=== PATIENT | female | born 1960 | race Caucasian/White ===

== ENCOUNTER → 2017-04-09 | Outpatient (CLI) | payer BC ==
--- NOTE | 2017-04-11 08:41 | MM ---
Reason for exam: screening (asymptomatic). Last mammogram was performed 1 year ago. History: Patient is postmenopausal. Reductions of both breasts, 1990. Took estrogen for 5 years beginning at age 45. Took progesterone for 5 years beginning at age 45. Physical Findings: A clinical breast exam by your physician is recommended on an annual basis and results should be correlated with mammographic findings. MG 3D Screening Mammo W/Cad Bilateral CC and MLO view(s) were taken. Prior study comparison: April 06, 2016, bilateral MG 3d screening mammo w/cad. March 31, 2015, bilateral MG screening mammo w CAD. January 20, 2014, bilateral MG screening mammo w CAD. There are scattered fibroglandular densities. Finding: There are indeterminate grouped calcifications in the upper outer quadrant, middle position of the right breast. New finding since April 06, 2016, March 31, 2015, and January 20, 2014. ASSESSMENT: Incomplete: need additional imaging evaluation, BI-RAD 0 RECOMMENDATION: Special view mammogram of the right breast. If lesion persists on supplemental views, image directed ultrasound is recommended. [facility] will attempt to contact patient to return for supplemental views and ultrasound if indicated.
== END | disposition home or self-care (01) ==
LOC: RADMAMWWP 09:58
PROVIDERS: ATTEND Obstetrics & Gynecology
DX: Z12.31 Encounter for screening mammogram for malignant neoplasm of breast (principal)
CPT/HCPCS: 77063; G0202

== ENCOUNTER → 2017-04-12 | Outpatient (CLI) | payer BC ==
--- NOTE | 2017-04-13 06:54 | MM ---
Reason for exam: additional evaluation requested from abnormal screening. Last mammogram was performed less than 1 month ago. History: Patient is postmenopausal. Reductions of both breasts, 1989. Took estrogen for 5 years beginning at age 45. Took progesterone for 5 years beginning at age 45. Physical Findings: Nurse did not find any significant physical abnormalities on exam. MG 3D Work Up W/Cad RT LM, CC with magnification, and LM with magnification view(s) were taken of the right breast. Prior study comparison: April 09, 2017, bilateral MG 3d screening mammo w/cad. April 06, 2016, bilateral MG 3d screening mammo w/cad. Finding: There are suspicious heterogeneous calcifications in the slight outer quadrant, posterior middle position of the right breast. These results were verbally communicated with the patient and result sheet given to the patient on 04/12/17. ASSESSMENT: Suspicious, BI-RAD 4 RECOMMENDATION: Stereotactic core biopsy of the right breast. Called Dr. Hernandez with mammographic findings and has scheduled an appointment for the patient for 05/09/17 at 3:[address] Bowie. Biopsy scheduled for 04/20/17 at 8:00. PRELIMINARY REPORT CALLED AND FAXED TO DR. BOWIE ON 04/13/17.
== END ==
LOC: RADMAMWWP 14:12
PROVIDERS: ATTEND Obstetrics & Gynecology
DX: R92.8 Other abnormal and inconclusive findings on diagnostic imaging of breast (principal)
CPT/HCPCS: G0206; G0279

== ENCOUNTER → 2017-04-20 | Day surgery (SDC) | payer BC ==
[2017-04-20 07:17] VITALS: RESP 16; BMI 30.7
[2017-04-20 09:23] VITALS: BP 127/85; PULSE 66; TEMP 97.5
--- NOTE | 2017-04-20 18:45 | MM ---
EXAMINATION TYPE: MG stereo VAD BX RT DATE OF EXAM: 04/20/2017 COMPARISON: NONE CLINICAL HISTORY: Abnormal mammogram breast calcifications TECHNIQUE: Stereotactic guided core biopsy of right breast. FINDINGS: The procedure of stereotactic guided core biopsy was explained to the patient. Benefits, alternatives, and risks were discussed. An informed consent was then obtained. Timeout was performed. [facility] Shortness pathway was lateral approach. Radiology localized then Dr. Liz performed the procedure. A vacuum assisted biopsy device was used to obtain 6 core samples. The patient tolerated the procedure well without any immediate complication. The patient was kept in the radiology department for short stay after the procedure and then discharged home in stable condition. Specimen: Targeted calcifications are identified in specimen mammogram. Post biopsy mammogram: Mammogram ordered by the physician shows the clip to appear in satisfactory position relative to the targeted area of concern on the preprocedure images. IMPRESSION: 1. Successful core biopsy right breast calcifications. Recommendations: 1. Recommendations are pending pathology results. Pathology Results: Malignant BREAST, RIGHT, STEREOTACTIC CORE BIOPSY: DUCT CARCINOMA IN SITU, PENDING SPECIAL STAINS TO FURTHER EVALUATE FOR INVASION. THE RESULTS WILL BE ISSUED IN AN ADDENDUM REPORT. 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 CALCIFICATIONS IDENTIFIED. Recommendation Surgical consult of the right breast. ALFREDA
== END ==
LOC: RADMAMWWP 06:49
PROVIDERS: ATTEND Surgery
DX: D05.11 Intraductal carcinoma in situ of right breast (principal)
CPT/HCPCS: 88305; 88342; 88341; 19081; A4648; J2001

== ENCOUNTER → 2017-10-17 | Outpatient (CLI) | payer BC ==
--- NOTE | 2017-10-17 10:56 | MM ---
Reason for exam: follow-up at short interval from prior study. Last mammogram was performed 6 months ago. History: Patient is postmenopausal and has history of breast cancer at age 57. Radiation therapy of the right breast, July 2017. Malignant MG pre op needle loc RT of the right breast, June 01, 2017. Lumpectomy of the right breast, June 01, 2017. Malignant MG stereo VAD BX RT of the right breast, April 20, 2017. Reductions of both breasts, 1989. Took estrogen for 5 years beginning at age 45. Took progesterone for 5 years beginning at age 45. Taking antineoplastic beginning at age 57. Physical Findings: Nurse did not find any significant physical abnormalities on exam. MG 3D Diag Mammo W/Cad RT CC and MLO view(s) were taken of the right breast. Prior study comparison: April 12, 2017, right breast MG 3d work up w/cad RT. April 09, 2017, bilateral MG 3d screening mammo w/cad. The breast tissue is heterogeneously dense. This may lower the sensitivity of mammography. Post therapy change on the right, 4.2 x 4.7cm in craniocaudal by anterior posterior dimension. These results were verbally communicated with the patient and result sheet given to the patient on 10/17/17. ASSESSMENT: Benign, BI-RAD 2 RECOMMENDATION: Follow-up diagnostic mammogram of both breasts in 6 months. Back on schedule.
== END | disposition home or self-care (01) ==
LOC: RADMAMWWP 09:47
PROVIDERS: ATTEND Radiology Radiation Oncology
DX: Z08 Encounter for follow-up examination after completed treatment for malignant neoplasm (principal); Z85.3 Personal history of malignant neoplasm of breast
CPT/HCPCS: 77065; G0279

== ENCOUNTER → 2018-01-14 | Outpatient (CLI) | payer BC ==
--- NOTE | 2018-01-14 15:35 | BD ---
EXAMINATION TYPE: Axial Bone Density DATE OF EXAM: 01/14/2018 CLINICAL HISTORY: 57-year-old female history of breast cancer, osteopenia, postmenopausal screening Height: 61.5 Weight: 170 FRAX RISK QUESTIONS: Alcohol (3 or more units per day): no Family History (Parent hip fracture): mother broke pelvis last year Glucocorticoids (More than 3mos): just got off second round of steroids for foot problem( all for ab out month) (Ex: prednisone, prednisolone, methylprednisolone, dexamethasone, and hydrocortisone). History of Fracture in Adulthood: ankle Secondary Osteoporosis: 1. Type 1 Diabetes: no 2. Hyperthyroidism: unsure 3. Menopause before 45: hysterectomy age 44 4. Malnutrition: no 5. Chronic liver disease: no Rheumatoid Arthritis: no Current Tobacco Use: no RISK FACTORS HISTORY OF: Family History of Osteoporosis: yes Active: yes Diet low in dairy products/other sources of calcium: no Postmenopausal woman: yes Take estrogen and/or progesterone medications: not now How long: estrogen about 5 years starting about age 45 Lost more than 2 inches in height since high school: no Frequent falls: no Poor Health: no Hyperparathyroidism: no Adrenal Insufficiency: no MEDICATIONS: Prednisone or other steroids: not now How Long: about a month Thyroid Medications: yes Which medication: Synthroid How Long: over 10 years Osteoporosis Medications: yes Which medication: not now How Long: about 5 years used Altevia Additional Medications: antineoplastic Additional History: breast CA / radiation EXAM MEASUREMENTS: Bone mineral densitometry was performed using the [employer] System. Bone mineral density as measured about the Lumbar spine is: ----- L1-L4(G/cm2): 1.154 T Score Values are as follows: ----- L2: -0.8 ----- L3: -0.4 ----- L4: 0.4 ----- L1-L4: -0.2 Bone mineral density has: Decreased -2.4% since study of: 04/06/2016 Bone mineral density about the R hip (g/cm2): 0.789 Bone mineral density about the L hip (g/cm2): 0.796 T Score values are as follows: -----R Neck: -1.8 -----L Neck: -1.7 -----R Total: -1.3 -----L Total: -1.9 Bone mineral density has: Decreased -1.0% since study of: 04/06/2016 IMPRESSION: Osteopenia (T Score between -2.5 and -1). There is slightly increased risk of fracture and the patient may be considered for treatment. Re-Screen 2-5 years. NOTE: T-SCORE=SD OF THE YOUNG ADULT MEAN.
== END | disposition home or self-care (01) ==
LOC: RADBDWWP 08:23
PROVIDERS: ATTEND Internal Medicine Hematology & Oncology
DX: M85.9 Disorder of bone density and structure, unspecified (principal); C50.411 Malignant neoplasm of upper-outer quadrant of right female breast
CPT/HCPCS: 77080

== ENCOUNTER → 2018-05-02 | Outpatient (CLI) | payer BC ==
--- NOTE | 2018-05-02 11:02 | MM ---
Reason for exam: follow-up at short interval from prior study. Last mammogram was performed 6 months ago. History: Patient is postmenopausal and has history of breast cancer at age 57. Radiation therapy of the right breast, July 2017. Malignant MG pre op needle loc RT of the right breast, June 01, 2017. Lumpectomy of the right breast, June 01, 2017. Malignant MG stereo VAD BX RT of the right breast, April 20, 2017. Reductions of both breasts, 1989. Took estrogen for 5 years beginning at age 45. Took progesterone for 5 years beginning at age 45. Taking antineoplastic for 10 months beginning at age 57. Physical Findings: Nurse did not find any significant physical abnormalities on exam. MG 3D Diag Mammo W/Cad RAVINDER Bilateral CC and MLO view(s) were taken. Prior study comparison: October 17, 2017, right breast MG 3d diag mammo w/cad RT. April 12, 2017, right breast MG 3d work up w/cad RT. The breast tissue is heterogeneously dense. This may lower the sensitivity of mammography. Post lumpectomy changes right upper outer quadrant. No significant new findings when compared with previous films. These results were verbally communicated with the patient and result sheet given to the patient on 05/02/18. ASSESSMENT: Benign, BI-RAD 2 RECOMMENDATION: Follow-up diagnostic mammogram of both breasts in 1 year.
== END | disposition home or self-care (01) ==
LOC: RADMAMWWP 10:03
PROVIDERS: ATTEND Radiology Radiation Oncology
DX: C50.411 Malignant neoplasm of upper-outer quadrant of right female breast (principal)
CPT/HCPCS: 77062; 77066

== ENCOUNTER → 2018-11-18 | Outpatient (CLI) | payer BC ==
--- NOTE | 2018-11-18 11:42 | FL ---
Modified barium swallow. HISTORY: Dysphagia. Modified barium swallow was performed with the department of speech pathology. The patient was prese nted with various consistencies of barium. There is no evidence for aspiration or penetration. Full report is to follow from the department of speech pathology. Impression: Normal study.
== END ==
LOC: RADFLMAIN 11:01
PROVIDERS: ATTEND Family Medicine
DX: R13.10 Dysphagia, unspecified (principal)
CPT/HCPCS: 74230

== ENCOUNTER 2019-02-07 09:17 | Day surgery (SDC) | payer BC ==
[~2019-02-07 09:17] MED LIST: LACTATED RINGERS 1,000 ML IV SCH
[2019-02-07 10:06] VITALS: TEMP 97.4
[2019-02-07] MEDS ORDERED: LIDOCAINE 1% 20 ML VIAL (10MG/ML) FOR IV START INTRADERMA ONE (10:14)
[2019-02-07] MEDS ORDERED: PROPOFOL 10 MG/ML 20 ML VIAL IV ONE (11:34)
[2019-02-07] MEDS ORDERED: LIDOCAINE 1% INJ 10MG/ML (20 ML MDV) ONE (11:34)
--- NOTE | 2019-02-07 11:46 | P.PCN ---
Date of Procedure: 02/07/19 Procedure(s) Performed: BRIEF HISTORY: Patient is a 58-year-old, pleasant, white female, scheduled for an upper endoscopy as a part of evaluation of intermittent dysphagia to solids for the last 3-4 months duration. He does complain of occasional heartburn. In view of the symptoms she is scheduled for an upper endoscopy with possible dilation today.. PROCEDURE PERFORMED: Esophagogastroduodenoscopy with biopsy and dilation. PREOPERATIVE DIAGNOSIS: Intermittent dysphagia to solids of 3 months duration. IV sedation per anesthesia. PROCEDURE: After informed consent was obtained, the patient was brought into the endoscopy unit. IV sedation was administered by Anesthesia under continuous monitoring. Initially the Olympus GIF-140 video endoscope was inserted into the mouth. Esophagus intubated without any difficulty. It was gradually advanced into the stomach and duodenum and carefully examined. The bulb and the second part of the duodenum appeared normal. The scope at this time was withdrawn to the stomach, adequately insufflated with air, and upon careful examination, mucosa of the antrum, had mild gastritis and biopsies were done from this area. The body, cardia and the fundus appeared normal. The scope was then withdrawn into the esophagus. The GE junction was located at 39 cm from the incisors. It was a small hiatal hernia noted. There was a distal esophageal Schatzki's ring identified which was dilated using 15-18 mm TTS balloon in a sequential fashion for total of 60 seconds. The rest of the esophagus appeared normal. There were no erosions or ulcerations seen, biopsies were done from the distal esophagus and the patient tolerated the procedure well. IMPRESSION: 1. Distal esophageal Schatzki's ring status post balloon dilation using 15-18 mm TTS balloon as described above. 2. Antral gastritis 3. Small hiatal hernia. RECOMMENDATIONS: The findings of this examination were discussed with the patient as well as a family. She was advised to remain on a clear liquid diet for lunch today. She will follow with the biopsy results. She was advised to resume Prilosec 20 mg daily, and regularly and follow antireflux measures.
[2019-02-07 11:49] VITALS: RESP 16
[2019-02-07 12:01] VITALS: PULSE 77
[2019-02-07 12:18] VITALS: BP 149/78
== END 2019-02-07 12:24 | disposition home or self-care (01) ==
LOC: ORWHC2ENDO 09:17
PROVIDERS: ATTEND Internal Medicine Gastroenterology
DX: K22.2 Esophageal obstruction (principal); K29.50 Unspecified chronic gastritis without bleeding; K44.9 Diaphragmatic hernia without obstruction or gangrene; K21.9 Gastro-esophageal reflux disease without esophagitis; E78.5 Hyperlipidemia, unspecified; E07.9 Disorder of thyroid, unspecified; Z85.3 Personal history of malignant neoplasm of breast; Z90.10 Acquired absence of unspecified breast and nipple; Z90.710 Acquired absence of both cervix and uterus; Z79.890 Hormone replacement therapy; Z79.899 Other long term (current) drug therapy; Z88.1 Allergy status to other antibiotic agents; Z88.5 Allergy status to narcotic agent
CPT/HCPCS: 43249; 43239; 88305; J2001; J2704

== ENCOUNTER → 2019-05-02 | Outpatient (CLI) | payer BC ==
--- NOTE | 2019-05-02 08:35 | US ---
EXAMINATION TYPE: US abdomen complete DATE OF EXAM: 05/02/2019 COMPARISON: NONE CLINICAL HISTORY: R10.817 generalized abdominal tenderness. Pt states post prandial bloating x 4-5 da ys EXAM MEASUREMENTS: Liver Length: 19.9 cm Gallbladder Wall: 0.2 cm CBD: 0.6 cm Spleen: 10.4 cm Right Kidney: 11.1 x 4.5 x 5.5 cm Left Kidney: 11.0 x 5.4 x 4.7 cm Pancreas: Body wnl, head and tail Liver: Enlarged, extremely difficult to penetrate. There is increased echogenicity of the hepatic pa renchyma with diminished visualization of the portal triads most commonly relating to hepatic steatos is and limiting evaluation for underlying hepatic masses. Gallbladder: wnl Evidence for sonographic Briseno's sign: No CBD: wnl Spleen: wnl Right Kidney: wnl Left Kidney: wnl Upper IVC: wnl Abd Aorta: Prox and Distal wnl, mid portion gassed out The intrahepatic portion of the IVC and proximal abdominal aorta are within normal limits. There is no evidence of cholelithiasis. Common bile duct is unremarkable. The visualized portions of the salvador creas are homogenous. The spleen is unremarkable. Kidneys are symmetric and free of hydronephrosis. No renal lesions are seen. IMPRESSION: 1. No sonographic evidence of acute or cholecystitis or cholelithiasis. 2. Sonographic findings most commonly related to hepatic steatosis. Overall this appears at least mod erate in degree Correlate with liver function tests.
== END | disposition home or self-care (01) ==
LOC: RADUSWWP 06:49
PROVIDERS: ATTEND Family Medicine
DX: R10.817 Generalized abdominal tenderness (principal)
CPT/HCPCS: 76700

== ENCOUNTER → 2019-05-02 | Outpatient (CLI) | payer BC | END | disposition home or self-care (01) | LOC: RADMAMWWP 06:52 | PROVIDERS: ATTEND Radiology Radiation Oncology | DX: Z53.9 Procedure and treatment not carried out, unspecified reason (principal) ==

== ENCOUNTER → 2019-05-08 | Outpatient (CLI) | payer BC ==
--- NOTE | 2019-05-08 14:02 | CT ---
EXAMINATION TYPE: CT abdomen w con DATE OF EXAM: 05/08/2019 COMPARISON: Ultrasound 05/02/2019 HISTORY: 59-year-old female Hepatomegaly TECHNIQUE: Contiguous axial scanning of the abdomen following administration of 100 ml Omnipaque 300 IV contrast. Delayed images through the kidneys and coronal/sagittal reconstructions performed. CT DLP: 940 mGycm Automated exposure control for dose reduction was used. FINDINGS: Heart upper limits of normal in size without pericardial effusion. Some strandy atelectasis at the le ft base. No pleural effusion. Liver enlarged measuring 19.4 cm with marked low attenuation. No biliary ductal dilatation. Portal ve nous system is patent. Gallbladder, adrenal glands, kidneys, spleen with inferior splenule, and pancreas appear within dennis l limits. No dilated small bowel, free fluid, or free air. No mesenteric or retroperitoneal lymphadenopathy. Mild scattered stool. Scattered mild diverticular change in the colon. No pericolonic inflammatory ch rajwinder. Lower abdomen and pelvis is not imaged on the present exam. Bones: Mild facet arthropathy lower lumbar spine. IMPRESSION: 1. HEPATOMEGALY (19.4 CM) WITH SUGGESTION OF SEVERE HEPATIC STEATOSIS. CORRELATE WITH LFT's, LIVER ME OFILE, AND PATIENT RISK FACTORS. 2. MILD SCATTERED COLONIC DIVERTICULOSIS.
== END | disposition home or self-care (01) ==
LOC: RADCTMAIN 10:40
PROVIDERS: ATTEND Nurse Practitioner
DX: K76.0 Fatty (change of) liver, not elsewhere classified (principal); K57.30 Diverticulosis of large intestine without perforation or abscess without bleeding; R16.0 Hepatomegaly, not elsewhere classified
CPT/HCPCS: 74160; Q9967

== ENCOUNTER → 2019-05-13 | Outpatient (CLI) | payer BC ==
--- NOTE | 2019-05-13 10:00 | MM ---
Reason for exam: additional evaluation requested from prior study. Last mammogram was performed 1 year ago. History: Patient is postmenopausal and has history of breast cancer at age 57. Radiation therapy of the right breast, July 2017. Malignant MG pre op needle loc RT of the right breast, June 01, 2017. Lumpectomy of the right breast, June 01, 2017. Malignant MG stereo VAD BX RT of the right breast, April 20, 2017. Reductions of both breasts, 1990. Took estrogen for 5 years beginning at age 45. Took progesterone for 5 years beginning at age 45. Taking antineoplastic for 10 months beginning at age 57. Physical Findings: Nurse did not find any significant physical abnormalities on exam. MG 3D Diag Mammo W/Cad RAVINDER Bilateral CC and MLO view(s) were taken. XCCL view(s) were taken of the right breast. Prior study comparison: May 02, 2018, bilateral MG 3d diag mammo w/cad RAVINDER. October 17, 2017, right breast MG 3d diag mammo w/cad RT. The breast tissue is heterogeneously dense. This may lower the sensitivity of mammography. Post reduction change on the left. Post therapy change on the right. These results were verbally communicated with the patient and result sheet given to the patient on 05/13/19. ASSESSMENT: Benign, BI-RAD 2 RECOMMENDATION: Follow-up diagnostic mammogram of both breasts in 1 year.
== END | disposition home or self-care (01) ==
LOC: RADMAMWWP 08:34
PROVIDERS: ATTEND Radiology Radiation Oncology
DX: C50.411 Malignant neoplasm of upper-outer quadrant of right female breast (principal); Z79.811 Long term (current) use of aromatase inhibitors; Z17.0 Estrogen receptor positive status [ER+]; Z92.3 Personal history of irradiation; Z98.890 Other specified postprocedural states
CPT/HCPCS: 77062; 77066

== ENCOUNTER → 2020-05-03 | Outpatient (CLI) | payer BC ==
--- NOTE | 2020-05-04 06:50 | BD ---
EXAMINATION TYPE: Axial Bone Density DATE OF EXAM: 05/03/2020 COMPARISON: 01/14/2018 CLINICAL HISTORY: Postmenopausal female. Height: 60.5 IN Weight: 158 LBS FRAX RISK QUESTIONS: Family History (Parent hip fracture): YES MOTHER RISK FACTORS HISTORY OF: Family History of Osteoporosis: YES MOTHER Active: YES Postmenopausal woman: TOTAL HYST AGE 54 Take estrogen and/or progesterone medications: NOT NOW How long: CONTROL FOR 10 YEARS MEDICATIONS: Thyroid Medications: YES Which medication: Levothyroxine How Lon+ YEARS Additional Medications: CALCIUM, VIT D, VIT B, FEMARA, LEVOTHYROXINE, EFFEXOR, TRICOR Additional History: BREAST CANCER WITH RADIATION EXAM MEASUREMENTS: Bone mineral densitometry was performed using the [employer] System. Bone mineral density as measured about the Lumbar spine is: ----- L1-L4(G/cm2): 1.025 T Score Values are as follows: ----- L2: -1.9 ----- L3: -1.0 ----- L4: -1.0 ----- L1-L4: -1.3 Bone mineral density has: Decreased -10.8% since study of: 01/14/2018 Bone mineral density about the R hip (g/cm2): 0.764 Bone mineral density about the L hip (g/cm2): 0.715 T Score values are as follows: -----R Neck: -2.0 -----L Neck: -2.3 -----R Total: -1.6 -----L Total: -2.3 Bone mineral density has: Decreased -4.5% since study of: 01/14/2018 IMPRESSION: Osteopenia (T Score between -2.5 and -1) remains present. There remains slightly increased risk of fracture and the patient may be considered for treatment. Re-Screen 2-5 years. NOTE: T-SCORE=SD OF THE YOUNG ADULT MEAN.
== END | disposition home or self-care (01) ==
LOC: RADBDWWP 12:37
PROVIDERS: ATTEND Obstetrics & Gynecology
DX: M85.80 Other specified disorders of bone density and structure, unspecified site (principal)
CPT/HCPCS: 77080

== ENCOUNTER → 2020-05-03 | Outpatient (CLI) | payer BC ==
--- NOTE | 2020-05-03 13:42 | MM ---
Reason for exam: additional evaluation requested from prior study. Last mammogram was performed 1 year ago. History: Patient is postmenopausal and has history of breast cancer at age 57. Radiation therapy of the right breast, July 2017. Malignant MG pre op needle loc RT of the right breast, June 01, 2017. Lumpectomy of the right breast, June 01, 2017. Malignant MG stereo VAD BX RT of the right breast, April 20, 2017. Reductions of both breasts, 1990. Took estrogen for 5 years beginning at age 45. Took progesterone for 5 years beginning at age 45. Taking antineoplastic for 3 years beginning at age 57. Physical Findings: Nurse did not find any significant physical abnormalities on exam. MG 3D Diag Mammo W/Cad RAVINDER Bilateral CC and MLO view(s) were taken. Prior study comparison: May 13, 2019, bilateral MG 3d diag mammo w/cad RAVINDER. May 02, 2018, bilateral MG 3d diag mammo w/cad RAVINDER. The breast tissue is heterogeneously dense. This may lower the sensitivity of mammography. Benign appearing calcifications in the left breast. There is chronic nodularity in the right breast. Post surgical change right upper outer quadrant. Stable skin thickening. No significant new findings when compared with previous films. These results were verbally communicated with the patient and result sheet given to the patient on 05/03/20. ASSESSMENT: Benign, BI-RAD 2 RECOMMENDATION: Follow-up diagnostic mammogram of both breasts in 1 year.
== END | disposition home or self-care (01) ==
LOC: RADMAMWWP 12:35
PROVIDERS: ATTEND Internal Medicine Hematology & Oncology
DX: Z08 Encounter for follow-up examination after completed treatment for malignant neoplasm (principal); Z85.3 Personal history of malignant neoplasm of breast
CPT/HCPCS: 77062; 77066

== ENCOUNTER → 2021-05-26 | Outpatient (CLI) | payer BC ==
--- NOTE | 2021-05-26 12:45 | MM ---
Reason for exam: additional evaluation requested from prior study. Last mammogram was performed 1 year and 1 month ago. History: Patient is postmenopausal and has history of breast cancer at age 57. Radiation therapy of the right breast, July 2017. Malignant MG pre op needle loc RT of the right breast, June 01, 2017. Lumpectomy of the right breast, June 01, 2017. Malignant MG stereo VAD BX RT of the right breast, April 20, 2017. Reductions of both breasts, 1989. Took estrogen for 5 years beginning at age 45. Took progesterone for 5 years beginning at age 45. Taking antineoplastic for 4 years beginning at age 57. Physical Findings: Nurse did not find any significant physical abnormalities on exam. MG 3D Diag Mammo W/Cad RAVINDER Bilateral CC and MLO view(s) were taken. Prior study comparison: May 03, 2020, bilateral MG 3d diag mammo w/cad RAVINDER. May 13, 2019, bilateral MG 3d diag mammo w/cad RAVINDER. The breast tissue is heterogeneously dense. This may lower the sensitivity of mammography. Large mass right breast is stable. Stable post operative changes bilaterally. No significant new findings when compared with previous films. These results were verbally communicated with the patient and result sheet given to the patient on 05/26/21. ASSESSMENT: Benign, BI-RAD 2 RECOMMENDATION: Follow-up diagnostic mammogram of both breasts in 1 year. Manage patient on a clinical basis.
== END | disposition home or self-care (01) ==
LOC: RADMAMWWP 10:36
PROVIDERS: ATTEND Radiology Radiation Oncology
DX: N63.10 Unspecified lump in the right breast, unspecified quadrant (principal); R92.2 Inconclusive mammogram; Z85.3 Personal history of malignant neoplasm of breast
CPT/HCPCS: 77062; 77066

== ENCOUNTER → 2021-10-14 | Outpatient (CLI) | payer BC | END | disposition home or self-care (01) | LOC: LABWHC1 08:52 | PROVIDERS: ATTEND Orthopaedic Surgery | DX: Z01.818 Encounter for other preprocedural examination (principal); M16.11 Unilateral primary osteoarthritis, right hip | CPT/HCPCS: 80048; 85025; 85610; 86850; 86900; 86901; 93005 ==

== ENCOUNTER → 2022-05-29 | Outpatient (CLI) | payer BC ==
--- NOTE | 2022-05-29 10:55 | MM ---
Reason for Exam: Hx of breast cancer, conservation therapy. Last screening mammogram was performed 12 month(s) ago. Patient History: Menarche at age 12. First Full-Term at age 19. Left ovary removed at age 44. Right ovary removed at age 44. Hysterectomy at age 44. Postmenopausal. Breast cancer, right, age 57. Previous chest radiation therapy at age 57. Estrogen, starting at age 45 for 5 years. Progesterone, starting at age 45 for 5 years. 1989, Bilateral Reduction. 06/01/2017, Lumpectomy on the Right side. 06/01/2017, Malignant Core Biopsy on the right side. 04/20/2017, Malignant Core Biopsy on the right side. 07/2017, Radiation Therapy on the right side. Prior Study Comparison: 08/08/2005 Screening Mammogram, [facility]. 01/20/2014 Bilateral Screening Mammogram, [facility]. 03/31/2015 Bilateral Screening Mammogram, [facility]. 04/09/2017 Bilateral Screening Mammogram, [facility]. 04/12/2017 Right Diagnostic Mammogram, [facility]. 05/02/2018 Bilateral Diagnostic Mammogram, [facility]. 05/13/2019 Bilateral Diagnostic Mammogram, [facility]. 05/03/2020 Bilateral Diagnostic Mammogram, [facility]. 05/26/2021 Bilateral Diagnostic Mammogram, [facility]. Tissue Density: The breast tissue is heterogeneously dense. This may lower the sensitivity of mammography. Findings: Analyzed By CAD. Postsurgical and posttreatment change right breast when Biozorb device in place. No significant change from prior exams. Overall Assessment: Benign, BI-RAD 2 Management: Screening Mammogram of both breasts in 1 year. 1. Patient should continue monthly self breast exams. 2. A clinical breast exam by your physician is recommended on an annual basis. 3. This exam should not preclude additional follow-up of suspicious palpable abnormalities. Results were given to the patient verbally at the time of exam. Electronically signed and approved by: Harshal Gregorio M.D. Radiologist
== END | disposition home or self-care (01) ==
LOC: RADMAMWWP 09:19
PROVIDERS: ATTEND Radiology Radiation Oncology
DX: C50.411 Malignant neoplasm of upper-outer quadrant of right female breast (principal); Z78.0 Asymptomatic menopausal state; Z85.3 Personal history of malignant neoplasm of breast
CPT/HCPCS: 77062; 77066

== ENCOUNTER → 2022-05-29 | Outpatient (CLI) | payer BC ==
--- NOTE | 2022-05-29 19:57 | BD ---
EXAMINATION TYPE: Axial Bone Density DATE OF EXAM: 05/29/2022 CLINICAL HISTORY: 62 years year old Female. ICD-10 CODE: M85.88 Disorder of bone Height: 61 Weight: 157 FRAX RISK QUESTIONS: Alcohol (3 or more units per day): NO Family History (Parent hip fracture): MOTHER Glucocorticoids (More than 3mos): NO History of Fracture in Adulthood: ANKLE Secondary Osteoporosis: 1. Type 1 Diabetes: NO 2. Hyperthyroidism: NO 3. Menopause before 45: NO 4. Malnutrition: NO 5. Chronic liver disease: NO Rheumatoid Arthritis: NO Current Tobacco Use: NO RISK FACTORS HISTORY OF: Hip Fracture (Right/Left): NO Spine Fracture: NO History of Wrist Fracture: NO Surgery to Spine/Hip(right/left)/Wrist (right/left): RT HIP REPLACED SEPTEMBER 2019 Family History of Osteoporosis: MOTHER, MATERNAL GRANDMOTHER Active: YES Diet low in dairy products/other sources of calcium: NO Postmenopausal woman: YES Take estrogen and/or progesterone medications: FERMARA-DISCONTINUED APR 2022 How lon YEARS Lost more than 2 inches in height since high school: NO Frequent falls: NO Poor Health: NO Hyperparathyroidism: NO Adrenal Insufficiency: NO MEDICATIONS: Prednisone or other steroids: NO Thyroid Medications: LEVOTHYROXINE How Long: PAST 15 YEARS Osteoporosis Medications: YES Which medication: ALENDRONATE How Long: PAST 5 YEARS Additional Medications: LETROZOLE, VENLAFAXINE, METFORMIN, VIT D, CALCIUM, B12, TUMERIC, REFLUX MEDS Additional History: BREAST CA. 5 YEARS AGO, AGE 57 EXAM MEASUREMENTS: Bone mineral densitometry was performed using the [employer] System. Bone mineral density as measured about the Lumbar spine is: ----- L1-L4(G/cm2): 1.085 T Score Values are as follows: ----- L1: -1.0 ----- L2: -1.5 ----- L3: -0.9 ----- L4: -0.2 ----- L1-L4: -0.8 Bone mineral density has: INCREASED 5.7 % since study of: 05/03/2020 Bone mineral density about the L hip (g/cm2): 0.742 T Score values are as follows: -----L Neck: -2.1 -----L Total: -2.0 Bone mineral density has: INCREASED 4.0 % since study of: 05/03/2020 FRAX%s: The graph provided illustrates a 31.9% chance for a major osteoporotic fx and a 2.9% chance f or the hips probability for fx in 10 years time. IMPRESSION: Osteopenia (T Score between -2.5 and -1). There is slightly increased risk of fracture and the patient may be considered for treatment. Re-Screen 2-5 years. NOTE: T-SCORE=SD OF THE YOUNG ADULT MEAN.
== END | disposition home or self-care (01) ==
LOC: RADBDWWP 09:23
PROVIDERS: ATTEND Obstetrics & Gynecology
DX: M85.89 Other specified disorders of bone density and structure, multiple sites (principal); Z78.0 Asymptomatic menopausal state
CPT/HCPCS: 77080

== ENCOUNTER → 2023-06-05 | Outpatient (CLI) | payer BC ==
--- NOTE | 2023-06-05 09:04 | MM ---
Reason for Exam: Hx of breast cancer, conservation therapy. Last mammogram was performed 1 year(s) and 1 month(s) ago. Patient History: Menarche at age 12. First Full-Term at age 19. Left ovary removed at age 44. Right ovary removed at age 44. Hysterectomy at age 44. Postmenopausal. Breast cancer, right, age 57. Previous chest radiation therapy at age 57. Estrogen, starting at age 45 for 5 years. Progesterone, starting at age 45 for 5 years. 1989, Bilateral Reduction. 06/01/2017, Lumpectomy on the Right side. 06/01/2017, Malignant Core Biopsy on the right side. 04/20/2017, Malignant Core Biopsy on the right side. 07/2017, Radiation Therapy on the right side. Prior Study Comparison: 12/19/2012 Bilateral Screening Mammogram, [facility]. 01/20/2014 Bilateral Screening Mammogram, [facility]. 03/31/2015 Bilateral Screening Mammogram, [facility]. 04/06/2016 Bilateral Screening Mammogram, [facility]. 04/09/2017 Bilateral Screening Mammogram, [facility]. 04/12/2017 Right Diagnostic Mammogram, [facility]. 05/23/2017 Bilateral Diagnostic Breast MRI, [facility]. 10/17/2017 Right Diagnostic Mammogram, [facility]. 05/02/2018 Bilateral Diagnostic Mammogram, [facility]. 05/13/2019 Bilateral Diagnostic Mammogram, [facility]. 05/03/2020 Bilateral Diagnostic Mammogram, [facility]. 05/26/2021 Bilateral Diagnostic Mammogram, [facility]. 05/29/2022 Bilateral MG 3D diag mammo w/cad RAVINDER, [facility]. Tissue Density: The breast tissue is heterogeneously dense. This may lower the sensitivity of mammography. Findings: Analyzed By CAD. No new suspicious masses or calcifications within either breast. Postsurgical and posterior mid change of the right breast. Stable chronic nodularity within the right breast. Overall Assessment: Benign, BI-RAD 2 Management: Screening Mammogram of both breasts in 1 year. A clinical breast exam by your physician is recommended on an annual basis and results should be correlated with mammographic findings. This exam should not preclude additional follow-up of suspicious palpable abnormalities. Results were given to the patient verbally at the time of exam. Electronically signed and approved by: Asher Ugalde D.O.
== END | disposition home or self-care (01) ==
LOC: RADMAMWWP 08:41
PROVIDERS: ATTEND Radiology Radiation Oncology
DX: R92.333 Mammographic heterogeneous density, bilateral breasts (principal); Z85.3 Personal history of malignant neoplasm of breast; Z78.0 Asymptomatic menopausal state; Z98.890 Other specified postprocedural states
CPT/HCPCS: 77062; 77066

== ENCOUNTER → 2023-07-18 | Day surgery (SDC) | payer BC ==
[~2023-07-18] MED LIST changes: +PROPOFOL 10 MG/ML 20 ML VIAL IV ONE
[2023-07-18 08:52] LABS: Glucose,Whole Blood 123 mg/dL (70-110)
[2023-07-18 08:55] VITALS: RESP 16; TEMP 97
--- NOTE | 2023-07-18 09:38 | P.PCN ---
Date of Procedure: 07/18/23 Procedure(s) Performed: BRIEF HISTORY: Patient is a 63-year-old pleasant white female scheduled for an elective colonoscopy as a part of evaluation of change in bowel habits and intermittent fecal incontinence for the last several months duration. PROCEDURE PERFORMED: Colonoscopy biopsy and snare polypectomy. PREOPERATIVE DIAGNOSIS: Change in bowel habits. IV sedation per Anesthesia. PROCEDURE: After informed consent was obtained, the patient, was brought into the endoscopy unit. IV sedation was administered by Anesthesia under continuous monitoring. Digital rectal examination was normal. Initially the Olympus CF-160 flexible video colonoscope was then inserted in the rectum, gradually advanced into the cecum without any difficulty. Careful examination was performed as the scope was gradually being withdrawn. Ileocecal valve and the appendiceal orifice were visualized and appeared normal. Prep was fair.. Mucosa of the cecum, ascending colon, transverse colon, descending colon, sigmoid colon, and rectum appeared normal. In the proximal rectum there was a 5 mm polyp that was removed by snare polypectomy. Random biopsies were done from ascending and descending colon to rule out microscopic/collagenous colitis. Scattered sigmoid diverticulosis seen. Retroflexion was performed in the rectum and no lesions were seen. The patient tolerated the procedure well. IMPRESSION: 5 mm proximal rectal polyp status post cold snare polypectomy Scattered sigmoid diverticulosis RECOMMENDATIONS: Findings of this examination were discussed with the patient as well as a family. She was advised to follow with the biopsy results. Continue with current medications and use [id number] Imodium as needed. If the biopsies adenoma she can have a repeat colonoscopy in 5 years..
[2023-07-18 10:18] VITALS: BP 136/81; PULSE 66
== END ==
LOC: ORWHC2ENDO 08:13
PROVIDERS: ATTEND Internal Medicine Gastroenterology
DX: K63.5 Polyp of colon (principal); K57.30 Diverticulosis of large intestine without perforation or abscess without bleeding; E78.5 Hyperlipidemia, unspecified; E07.9 Disorder of thyroid, unspecified; K21.9 Gastro-esophageal reflux disease without esophagitis; M19.90 Unspecified osteoarthritis, unspecified site; Z96.651 Presence of right artificial knee joint; Z90.49 Acquired absence of other specified parts of digestive tract; Z79.899 Other long term (current) drug therapy; Z98.891 History of uterine scar from previous surgery; Z98.890 Other specified postprocedural states
CPT/HCPCS: 88305; 45380; 45385; J2704

== ENCOUNTER → 2024-06-06 | Outpatient (CLI) | payer BC ==
--- NOTE | 2024-06-13 10:55 | MM ---
Reason for Exam: Screening (asymptomatic). Last screening mammogram was performed 12 month(s) ago. Patient History: Menarche at age 12. First Full-Term at age 19. Left ovary removed at age 44. Right ovary removed at age 44. Hysterectomy at age 44. Postmenopausal. Breast cancer, right, age 57. Previous chest radiation therapy at age 57. Estrogen, starting at age 45 for 5 years. Progesterone, starting at age 45 for 5 years. 1989, Bilateral Reduction. 06/01/2017, Lumpectomy on the Right side. 06/01/2017, Malignant Core Biopsy on the right side. 04/20/2017, Malignant Core Biopsy on the right side. 07/2017, Radiation Therapy on the right side. Prior Study Comparison: 10/17/2017 Right Diagnostic Mammogram, [facility]. 05/02/2018 Bilateral Diagnostic Mammogram, [facility]. 05/13/2019 Bilateral Diagnostic Mammogram, [facility]. 05/03/2020 Bilateral Diagnostic Mammogram, [facility]. 05/26/2021 Bilateral Diagnostic Mammogram, [facility]. 05/29/2022 Bilateral MG 3D diag mammo w/cad RAVINDER, [facility]. 06/05/2023 Bilateral MG 3D diag mammo w/cad RAVINDER, [facility]. Tissue Density: There are scattered areas of fibroglandular density. Findings: Analyzed By CAD. Right breast surgical clips. Right breast: There is no suspicious group of microcalcifications or new suspicious mass. Left breast: There is no suspicious group of microcalcifications or new suspicious mass. Overall Assessment: Benign, BI-RAD 2 Management: Screening Mammogram of both breasts in [address] [facility] will attempt to contact patient to return for supplemental views and ultrasound if indicated. Patient should continue monthly self-breast exams. A clinical breast exam by your physician is recommended on an annual basis. This exam should not preclude additional follow-up of suspicious palpable abnormalities. Note on Ciara scores and lifetime risk: 1. A Ciara score greater than 3% is considered moderate risk. If this is the case, consider specialist referral to assess eligibility for a risk reducing agent. 2. If overall lifetime risk for the development of breast cancer is 20% or higher, the patient may qualify for future screening with alternating mammogram and breast MRI. [facility], , 06/13/2024 10:52 AM. Electronically signed and approved by: Jun Pearson DO
== END | disposition home or self-care (01) ==
LOC: RADMAMWWP 08:58
PROVIDERS: ATTEND Internal Medicine Hematology & Oncology
DX: Z12.31 Encounter for screening mammogram for malignant neoplasm of breast (principal); R92.323 Mammographic fibroglandular density, bilateral breasts; Z78.0 Asymptomatic menopausal state; Z90.722 Acquired absence of ovaries, bilateral; Z92.3 Personal history of irradiation
CPT/HCPCS: 77063; 77067